=== PATIENT | female | born 1985 | race Caucasian/White ===

== ENCOUNTER 2018-05-09 15:25 | Emergency (ER) | payer MEDICARE ==
[~2018-05-09] VITALS: Ht 160 cm; Wt 63.5 kg
[2018-05-09 15:38] VITALS: BP 113/63
== END 2018-05-09 16:46 | disposition left against medical advice (07) ==
LOC: ER 15:38
DX: M79.601 Pain in right arm (principal); Z53.21 Procedure and treatment not carried out due to patient leaving prior to being seen by health care provider